=== PATIENT | female | born 1985 | race Caucasian/White ===

== ENCOUNTER 2017-01-20 14:22 | Emergency (ER) | payer BC ==
[~2017-01-20 14:22] MED LIST: ALBUTEROL2.5 MG/3 M IH; ATIVAN0.5 MG PO; BUSPAR 15MG TAB15 MG PO; CEFUROXIME250 MG PO; CIPRO 500MG TA500 MG PO; EFFEXOR75 MG PO; IMITREX100 MG PO; MACROBID 1100 MG/CAP PO; ONDANSETRON8 MG PO; OXYCODONE10 MG PO; PHENERGAN 25 TA25 MG PO; PHENERGAN25 M3 PO; PREDNISONE10 M1 PO; RESTORIL30 MG PO; TOPAMAX25 MG PO; TOPROL XL25 MG PO; TRAZODONE100 MG PO; ULTRAM50 MG PO; VERAPAMIL80 MG; WELLBUTRIN SR150 M2 PO; XANAX0.25 MG PO; XANAX0.5 M1 PO; ZOFRAN8 MG PO; ZOLOFT50 MG PO
[2017-01-20] MEDS ORDERED: GOOD NEIGHBOR200 M3 PO (14:39)
[2017-01-20 16:59] VITALS: BP 140/77
== END 2017-01-20 17:00 | disposition home or self-care (01) ==
LOC: ED 14:22
DX: R51 Headache (principal); M26.622 Arthralgia of left temporomandibular joint
CPT/HCPCS: J1885; J2360

== ENCOUNTER 2017-04-15 14:01 | Emergency (ER) | payer BC ==
[~2017-04-15] VITALS: Ht 160 cm; Wt 93.2 kg
[~2017-04-15 14:01] MED LIST changes: +GOOD NEIGHBOR200 M3 PO
[2017-04-15 15:30] VITALS: BP 132/88
== END 2017-04-15 15:26 | disposition home or self-care (01) ==
LOC: ED 14:01
DX: G43.909 Migraine, unspecified, not intractable, without status migrainosus (principal); R11.2 Nausea with vomiting, unspecified
CPT/HCPCS: J2300; J2550

== ENCOUNTER 2017-06-17 15:39 | Emergency (ER) | payer BC ==
[2017-06-17 17:55] VITALS: BP 131/75
== END 2017-06-17 17:56 | disposition home or self-care (01) ==
LOC: ED 15:39
DX: G43.909 Migraine, unspecified, not intractable, without status migrainosus (principal)
CPT/HCPCS: J1170; J1885; J2550

== ENCOUNTER 2017-11-29 15:19 | Emergency (ER) | payer OTHER, BC ==
[~2017-11-29] VITALS: Ht 160 cm; Wt 95.5 kg
[2017-11-29] MEDS ORDERED: ONDANSETRON HYDR4 MG PO (15:27)
[2017-11-29] MEDS ORDERED: ZOLOFT25 M1 (15:27)
[2017-11-29] MEDS ORDERED: DESYREL 100MG100 MG (15:27)
[2017-11-29] MEDS ORDERED: ZOFRAN ODT8 M1 PO (15:41)
[2017-11-29 16:08] VITALS: BP 108/61
== END 2017-11-29 16:07 | disposition home or self-care (01) ==
LOC: ED 15:19
DX: G43.909 Migraine, unspecified, not intractable, without status migrainosus (principal); Z88.0 Allergy status to penicillin; F41.9 Anxiety disorder, unspecified
CPT/HCPCS: J1885; J2550

== ENCOUNTER 2018-04-10 10:57 | Emergency (ER) | payer OTHER, BC ==
[~2018-04-10] VITALS: Ht 160 cm; Wt 93.2 kg
[~2018-04-10 10:57] MED LIST changes: +DESYREL 100MG100 MG; +ONDANSETRON HYDR4 MG PO; +ZOFRAN ODT8 M1 PO; +ZOLOFT25 M1
[2018-04-10] MEDS ORDERED: PHENERGAN 25 TA25 MG PO (11:08)
[2018-04-10] MEDS ORDERED: VIIBRYD20 MG PO (11:08)
[2018-04-10] MEDS ORDERED: WELLBUTRIN XL150 M2 PO (11:08)
[2018-04-10 12:22] VITALS: BP 116/66
== END 2018-04-10 12:22 | disposition home or self-care (01) ==
LOC: ED 10:57
DX: G43.909 Migraine, unspecified, not intractable, without status migrainosus (principal); Z79.899 Other long term (current) drug therapy
CPT/HCPCS: J1885; J2550

== ENCOUNTER 2018-05-27 08:46 | Emergency (ER) | payer OTHER, BC ==
[~2018-05-27 08:46] MED LIST changes: -DESYREL 100MG100 MG; +DESYREL 100MG100 MG PO; +VIIBRYD20 MG PO; +WELLBUTRIN XL150 M2 PO
[2018-05-27] MEDS ORDERED: BUSPAR 15MG TAB15 MG PO (08:56)
[2018-05-27] MEDS ORDERED: TROKENDI XR100 MG PO (08:56)
[2018-05-27 11:55] VITALS: BP 135/78
== END 2018-05-27 12:05 | disposition home or self-care (01) ==
LOC: ED 08:46
DX: G43.801 Other migraine, not intractable, with status migrainosus (principal); Z79.899 Other long term (current) drug therapy
CPT/HCPCS: J1200; J1630; J1885; J2550; J3475; J7030

== ENCOUNTER 2020-03-05 19:03 | Emergency (ER) | payer BC ==
[~2020-03-05] VITALS: Ht 160 cm; Wt 93.2 kg
[~2020-03-05 19:03] MED LIST changes: +TROKENDI XR100 MG PO
[2020-03-05] MEDS ORDERED: ZEMBRACE S3 MG/0.5 M SQ (19:10)
[2020-03-05 20:43] VITALS: BP 131/99
== END 2020-03-05 20:43 | disposition home or self-care (01) ==
LOC: ED 19:03
DX: S93.401A Sprain of unspecified ligament of right ankle, initial encounter (principal); G43.909 Migraine, unspecified, not intractable, without status migrainosus; X50.1XXA Overexertion from prolonged static or awkward postures, initial encounter; Y92.009 Unspecified place in unspecified non-institutional (private) residence as the place of occurrence of the external cause
CPT/HCPCS: L4386

== ENCOUNTER → 2024-03-27 | Outpatient (CLI) | payer OTHER ==
[~2024-03-27] MED LIST changes: +ZEMBRACE S3 MG/0.5 M SQ
[2024-03-27 15:48] LABS: BASO # 0.03 K/mm3 (0.02-0.10); EOS # 0.18 K/mm3 (0.04-0.40); EOS % 2.2 % (1.0-5.0); HEMATOCRIT 39.3 % (37.0-47.0); HEMOGLOBIN 13.3 g/dL (12.5-16.0); MEAN CELL VOLUME 83 fl (78-100); MEAN CORPUSCULAR HEMOGLOBIN 28 pg (27-31); MEAN CORPUSCULAR HGB CONC 34 g/dL (33-37); MEAN PLATELET VOLUME 9.9 fl (7.4-10.4); MONO # 0.84 K/mm3 (0.20-0.80); NEU # 4.91 K/mm3 (1.40-6.50); PLATELET COUNT 250 K/mm3 (130-400); RED BLOOD COUNT 4.71 M/mm3 (4.10-5.30); RED CELL DISTRIBUTION WIDTH 11.9 % (11.5-14.5); WHITE BLOOD COUNT 8.2 K/mm3 (4.8-10.8)
[2024-03-27 15:53] LABS: ALBUMIN 4.1 g/dL (3.5-5.0)
[2024-03-27 15:55] LABS: CALCIUM 9.5 mg/dL (8.3-10.5)
[2024-03-27 15:56] LABS: TOTAL PROTEIN 6.7 g/dL (6.4-8.3)
[2024-03-27 15:58] LABS: TOTAL BILIRUBIN 0.2 mg/dL (0.2-1.2)
== END ==
LOC: LAB 15:33
PROVIDERS: Registered Nurse
DX: R10.12 Left upper quadrant pain (principal)

== ENCOUNTER 2024-07-02 07:57 | Outpatient (RCR) | payer OTHER | END 2024-07-06 | disposition home or self-care (01) | LOC: PT | DX: M79.18 Myalgia, other site (principal); M54.2 Cervicalgia ==

== ENCOUNTER 2024-07-07 08:00 | Outpatient (RCR) | payer OTHER | END 2024-08-06 | LOC: PT | DX: M79.18 Myalgia, other site (principal); M54.2 Cervicalgia ==